=== PATIENT | female | born 1990 | race Native Hawaiian/Other Pacific Islander ===

== ENCOUNTER 2016-02-21 06:58 | Inpatient (IN) | payer OTHER ==
[~2016-02-21] VITALS: Ht 172.7 cm; Wt 88.9 kg
[2016-02-21] VITALS (18 sets, daily range): BP systolic 90–137; BP diastolic 52–98; TEMP 97.7–98.1; Ht 172.7 cm; Wt 88.9 kg
[~2016-02-21 06:58] MED LIST: PRENATAL1 TA1 PO; PROAIR HFA IN; SINGULAIR10 MG PO
[2016-02-21 11:57] LABS: PLATELET COUNT 314 K/uL (152-353)
[2016-02-21 12:08] LABS: POTASSIUM 3.4 mmol/L (3.6-5.2); SODIUM 133 mmol/L (136-145)
[2016-02-22] VITALS (16 sets, daily range): BP systolic 86–133; BP diastolic 38–79; TEMP 97.8–98.4
[2016-02-22 05:45] LABS: POTASSIUM 4.1 mmol/L (3.6-5.2); SODIUM 136 mmol/L (136-145)
[2016-02-22 05:59] LABS: PLATELET COUNT 343 K/uL (152-353)
[2016-02-23] VITALS: BP 129/73; TEMP 97.2
[2016-02-23 05:35] VITALS: BP 137/68; TEMP 97.9
[2016-02-23 05:55] LABS: PLATELET COUNT 343 K/uL (152-353)
[2016-02-23 06:17] LABS: POTASSIUM 3.7 mmol/L (3.6-5.2); SODIUM 137 mmol/L (136-145)
[2016-02-23 08:00] VITALS: BP 128/73; TEMP 98.3
[2016-02-23 12:00] VITALS: BP 122/83; TEMP 98.4
[2016-02-23 15:59] VITALS: BP 104/64; TEMP 99
[2016-02-23 20:00] VITALS: BP 135/70; TEMP 97.8
[2016-02-24] VITALS: BP 114/61; TEMP 97.7
[2016-02-24 04:00] VITALS: BP 139/82; TEMP 97.8
[2016-02-24 12:20] VITALS: BP 117/81; TEMP 97.9
[2016-02-24 16:16] VITALS: BP 126/73; TEMP 98.4
[2016-02-25 06:28] VITALS: BP 126/71; TEMP 98.3
[2016-02-25 06:42] LABS: PLATELET COUNT 324 K/uL (152-353)
[2016-02-25 07:00] LABS: POTASSIUM 4.2 mmol/L (3.6-5.2); SODIUM 135 mmol/L (136-145)
[2016-02-25 08:00] VITALS: BP 120/80; TEMP 98.4
[2016-02-25 12:00] VITALS: BP 119/79; TEMP 98.7
[2016-02-25 16:00] VITALS: BP 122/78; TEMP 98.6
[2016-02-25 20:00] VITALS: BP 115/58; TEMP 98
[2016-02-26] VITALS: BP 119/65; TEMP 98
[2016-02-26 04:00] VITALS: BP 136/64; TEMP 98.1
[2016-02-26 08:00] VITALS: BP 116/65; TEMP 98.1
[2016-02-26 09:36] LABS: PLATELET COUNT 344 K/uL (152-353)
[2016-02-26 09:53] LABS: POTASSIUM 3.4 mmol/L (3.6-5.2); SODIUM 133 mmol/L (136-145)
[2016-02-26 11:56] VITALS: BP 125/68; TEMP 97.9
[2016-02-26 16:18] VITALS: BP 121/72; TEMP 98.5
[2016-02-26 20:14] VITALS: BP 135/60; TEMP 97.4
[2016-02-27] VITALS: BP 112/55; TEMP 97.3
[2016-02-27 04:00] VITALS: BP 113/74; TEMP 97.9
[2016-02-27 04:34] LABS: PLATELET COUNT 342 K/uL (152-353)
[2016-02-27 05:04] LABS: POTASSIUM 3.7 mmol/L (3.6-5.2); SODIUM 134 mmol/L (136-145)
[2016-02-27 08:18] VITALS: BP 107/65; TEMP 97.8
[2016-02-27 12:01] VITALS: BP 145/66; TEMP 98.2
== END 2016-02-27 12:22 | disposition home or self-care (01) | DRG 202 ==
LOC: ED 06:58 → ICU 07:55 → MED/SURG 07:55 → ED 07:55 → MED/SURG 02-22 14:05 → ICU 02-22 14:05 → ED 02-23 07:55 → ICU 02-23 07:55 → MED/SURG 02-23 07:55 → ICU 02-23 07:55 → MED/SURG 02-23 13:19
PROVIDERS: Emergency Medicine; ADMIT Emergency Medicine
DX: J45.902 Unspecified asthma with status asthmaticus (principal); J44.1 Chronic obstructive pulmonary disease with (acute) exacerbation; E87.1 Hypo-osmolality and hyponatremia; E87.6 Hypokalemia; R09.02 Hypoxemia
CPT/HCPCS: 36415; 36600; 80053; 80335; 81000; 81025; 82805; 83735; 84100; 85027; 87070; 87205; 94640; 94664; 94668; 94760; 96372; 96374; 96375; 99285; J0280; J1650; J2060; J2930; J3105; J3475

== ENCOUNTER 2017-01-24 11:09 | Inpatient (IN) | payer OTHER ==
[2017-01-24] VITALS (7 sets, daily range): BP systolic 99–148; BP diastolic 60–82; TEMP 98.4–99.8; Ht 172.7 cm; Wt 94.1 kg
[~2017-01-24] VITALS: Ht 172.7 cm; Wt 94.1 kg
[2017-01-24 11:39] LABS: PLATELET COUNT 338 K/uL (152-353)
[2017-01-24 11:46] LABS: POTASSIUM 3.8 mmol/L (3.6-5.2); SODIUM 135 mmol/L (136-145)
[2017-01-24] MEDS ORDERED: ALBUTEROL0.083 % IN (19:18)
[2017-01-25] VITALS: BP 131/62; TEMP 98.3
[2017-01-25 04:00] VITALS: BP 117/74; TEMP 98.1
[2017-01-25 06:30] LABS: PLATELET COUNT 345 K/uL (152-353)
[2017-01-25 06:44] LABS: POTASSIUM 3.5 mmol/L (3.6-5.2); SODIUM 134 mmol/L (136-145)
[2017-01-25 08:00] VITALS: BP 125/69; TEMP 98.2
[2017-01-25 11:44] VITALS: BP 121/73; TEMP 98.2
[2017-01-25 16:00] VITALS: BP 138/65; TEMP 98.7
[2017-01-25 20:00] VITALS: BP 124/68; TEMP 98.3
[2017-01-26] VITALS: BP 117/62; TEMP 98.7
[2017-01-26 04:00] VITALS: BP 141/56; TEMP 98.5
[2017-01-26 06:22] LABS: SODIUM 136 mmol/L (136-145)
[2017-01-26 06:50] LABS: PLATELET COUNT 357 K/uL (152-353)
[2017-01-26 08:00] VITALS: BP 125/67; TEMP 98.3
[2017-01-26 12:00] VITALS: BP 115/65; TEMP 99
[2017-01-26 16:00] VITALS: BP 106/63; TEMP 98.7
[2017-01-26 20:00] VITALS: BP 120/59; TEMP 98.3
[2017-01-27] VITALS: BP 109/58; TEMP 98.6
[2017-01-27 04:00] VITALS: BP 116/77; TEMP 97.9
[2017-01-27 06:21] LABS: PLATELET COUNT 354 K/uL (152-353)
[2017-01-27 06:35] LABS: POTASSIUM 4.3 mmol/L (3.6-5.2); SODIUM 139 mmol/L (136-145)
[2017-01-27 08:00] VITALS: BP 137/74; TEMP 98.4
== END 2017-01-28 12:45 | disposition home or self-care (01) | DRG 203 ==
LOC: ED 11:09 → MED/SURG 12:30
PROVIDERS: Internal Medicine; ADMIT Specialist
DX: J45.998 Other asthma (principal); R09.02 Hypoxemia; D72.828 Other elevated white blood cell count; J01.10 Acute frontal sinusitis, unspecified; K21.9 Gastro-esophageal reflux disease without esophagitis; E66.8 Other obesity
CPT/HCPCS: 36415; 36600; 80048; 80053; 81000; 81025; 82805; 83735; 85027; 94640; 94644; 94645; 94664; 94760; 96372; 96374; 96375; 99284; J1200; J1650; J2930; J3490

== ENCOUNTER 2019-03-21 16:28 | Outpatient (CLI) | payer OTHER ==
[~2019-03-21 16:28] MED LIST changes: +ALBUTEROL0.083 % IN
== END 2019-03-21 20:15 | disposition home or self-care (01) ==
LOC: RAD 16:28
DX: J40 Bronchitis, not specified as acute or chronic (principal)

== ENCOUNTER 2019-06-20 12:15 | Outpatient (CLI) | payer OTHER | END 2019-06-20 22:26 | disposition home or self-care (01) | LOC: RAD 12:15 | DX: U07.1 COVID-19 (principal) ==

== ENCOUNTER 2019-06-28 11:40 | Outpatient (CLI) | payer OTHER | END 2019-06-28 22:23 | disposition home or self-care (01) | LOC: RESP 11:40 → RAD 11:40 | DX: U07.1 COVID-19 (principal) ==

== ENCOUNTER 2019-10-09 08:28 | Outpatient (CLI) | payer OTHER ==
[2019-10-09 14:05] LABS: PLATELET COUNT 400 K/uL (152-353)
== END 2019-10-09 22:56 | disposition home or self-care (01) ==
LOC: LABW 08:28
PROVIDERS: Nurse Practitioner
DX: L65.9 Nonscarring hair loss, unspecified (principal)
CPT/HCPCS: 36415; 82157; 82626; 82652; 83001; 83002; 84146; 84402; 84403; 84439; 84443; 85027

== ENCOUNTER 2020-04-14 09:32 | Inpatient (IN) | payer OTHER ==
[2020-04-14] VITALS (10 sets, daily range): BP systolic 103–153; BP diastolic 47–86; TEMP 97.6–97.8; Ht 172.7 cm; Wt 104.0 kg
[~2020-04-14] VITALS: Ht 172.7 cm; Wt 104.0 kg
[2020-04-14 10:10] LABS: PLATELET COUNT 378 K/uL (152-353)
[2020-04-14 10:25] LABS: POTASSIUM 2.7 mmol/L (3.6-5.2); SODIUM 142 mmol/L (136-145)
[2020-04-14 10:31] LABS: PARTIAL THROMBOPLASTIN TIME 22.7 SECONDS (24.5-33.6)
--- NOTE | 2020-04-14 12:45 | NUR ---
REC'D PT FROM ER VIA WC. PT ASSISTED TO BED AND VENTIMASK INTACT AT 50%. PT NOTED TO BE TACHY WITH A RATE OF 130 AND RESP LABORED. WILL CON'T TO MONITOR.
--- NOTE | 2020-04-14 13:25 | NUR ---
DR DAWSON INFORMED OF POTASSIUM ON 2.7 IN ER. NO NEW ORDERS AT THIS TIME.
--- NOTE | 2020-04-14 14:00 | NUR ---
Se DAWSON AT BS SEEING PT.
--- NOTE | 2020-04-14 15:05 | NUR ---
CALLED TO ROOM PER PT. PT STATED SHE WAS HAVING A "HARD TIME BREATHING" UPON ENTERING THE ROOM PT NOTED TO BE SITTING IN HIGH FOWELRS POSITION WITH LABORED BREATHING. PT'S SATS IN LOW 90'S WITH VENTI-MASK INTACT. DR VAUGHN NOTIIFED OF RESP DISTRESS ALONG WITH RESP. RESP RESPNDED THAT THEY WERE IN ER WITH A PT.
--- NOTE | 2020-04-14 15:15 | NUR ---
DR DAWSON IN ROOM AT . NEW ORDERS TO SWAP PT TO CONT NEBS AND GIVE ATIVAN 1MG IV. INSTRUCTED PT TO ATTEMPT TO SLOW RR DOWN AND WE WAS GETTING SOME MEDS FOR HER.
--- NOTE | 2020-04-14 15:20 | NUR ---
PT SWAPPED OVER TO CONT NEBS PER RESP AND ATIVAN 1MG IV ALONG WITH MORPHINE 1MG IVP GIVEN. PT SATS SLOWLY INCREASING TO 93% ON CONT NEBS. WILL CON'T TO MONITOR.
--- NOTE | 2020-04-14 15:50 | NUR ---
PT NOTED TO BE RESTING IN BED IN HIGH FLOWER'S POSITION . RR REMAIN LABORED BUT LESS THAN ON PRIOR EXAM. WILL CONT TO MONITOR
--- NOTE | 2020-04-14 15:54 | NUR ---
PATIENT PLACED OM CONTINOUS NEB AT 1515 AT 50%
--- NOTE | 2020-04-14 16:06 | NUR ---
1530 PT NOTED TO BE LESS ANXIOUS AT THIS TIME. SATS 93-94% ON CONT NEBS PT STATED SHE WAS BEGINNING TO FEEL DROWSY.
--- NOTE | 2020-04-14 18:10 | NUR ---
PATIENT SATING 96% AND HEARTRATE 121
[2020-04-15] VITALS: BP 136/89; TEMP 97.4
[2020-04-15 04:00] VITALS: BP 127/77; TEMP 98.2
[2020-04-15 04:55] LABS: PLATELET COUNT 361 K/uL (152-353)
[2020-04-15 05:34] LABS: POTASSIUM 3.7 mmol/L (3.6-5.2)
[2020-04-15 08:00] VITALS: BP 138/69; TEMP 97.8
--- NOTE | 2020-04-15 08:15 | NUR ---
PT SITTING UP IN BED ON CONTINUOUS NEB TXS, SATS 97%. ADVENTITIOUS BREATH SOUNDS NOTED THROUGHOUT, PT IN NAD AT THIS TIME AND TOLERATES TALKING/EATING/DRINKING WHILE ON O2. PT REPORTS GETTING EXTREMELY WINDED WHEN SHE AMBULATES TO SINK OR BATHROOM. BSC AND WIPES PLACED AT BEDSIDE AND PT ENCOURAGED TO USE THEM AND TO CALL FOR ASSIST BEFORE GETTING UP. PT VERBALIED UNDERSTANDING AND AGREES TO DO SO. BOWEL SOUNDS HYPOACTIVE WITH LBM REPORTED 04/13/20. TELE #6 AND CONTINUOUS PULSE OX IN PLACE WITH LEADS ATTACHED AND SATS97% ON CONTINUOUS NEBS. 20G SL IN LAC FLUSHED, NO REDNESS, SWELLING OR DRAINAGE NOTED TO SITE. CALL LIGHT IN EASY REACH. WILL CONTINUE TO MONITOR.
[2020-04-15 12:00] VITALS: BP 156/66; TEMP 97.7
--- NOTE | 2020-04-15 13:47 | NUR ---
PT SET UP FOR SPONGE BATH AT THIS TIME, WITH INSTRUCTIONS TO NOTIFY STAFF WHEN SHE IS DONE.
--- NOTE | 2020-04-15 14:07 | NUR ---
PT HR WENT UP TO 147 WHILE SITTING UP ON THE BEDSIDE BATHING. DISHROOM ATTENDANT TO ROOM TO ASSESS PT AND FOUND THAT PT HAD REMOVED O2. O2 REPLACED AND SATS IMPROVED TO 96 ON CONTINUOUS NEBS, HR DECREASED TO 130'S. DR. DAWSON NOTIFIED. NO NEW ORDERS YET. WILL CONTINUE TO MONITOR.
[2020-04-15 16:00] VITALS: BP 128/64; TEMP 97.5
--- NOTE | 2020-04-15 16:27 | NUR ---
LINENS CHANGED AT THIS TIME. PT IN NAD.
--- NOTE | 2020-04-15 18:11 | NUR ---
PT'S FACE RED AND IRRITATED WHERE MASK IS LAYING- DUODERM CUT TO FIT AND APPLIED.
[2020-04-15 19:54] VITALS: BP 133/74; TEMP 97.9
[2020-04-16] VITALS: BP 120/56; TEMP 98.1
--- NOTE | 2020-04-16 00:18 | NUR ---
SPO2 99% ON 50% CONTINOUS NEB WITH DUOB NEB AND DECARDRON. BBS: COARSE WHEEZING. HR 106. PT TOLERATING TX WELL.
--- NOTE | 2020-04-16 02:31 | NUR ---
RESTATRED CONT. NEB. SPO2 94%, HR 101, RR 24. BBS:COARSE WHEEZING. WILL CONT. TO MONITOR PT.
--- NOTE | 2020-04-16 03:30 | NUR ---
PT AWAKE SITTING UP IN THE BED WATCHING TV IN A HIGH FOWLERS POSITION. PT IS IN NO DISTRESS.
[2020-04-16 04:00] VITALS: BP 112/63; TEMP 98.4
[2020-04-16 07:01] LABS: POTASSIUM 4.4 mmol/L (3.6-5.2)
[2020-04-16 07:59] LABS: PLATELET COUNT 379 K/uL (152-353)
[2020-04-16 08:00] VITALS: BP 149/71; TEMP 98
--- NOTE | 2020-04-16 08:48 | NUR ---
PT SITTING UP IN BED EATING BREAKFAST A/O X3, NO C/O PAIN OR DISTRESS AT THIS TIME. PT REMOVED O2 TO EAT, SATS NOTED TO FLUCTUATE BETWEEN 88 AND 95% ON RA, HR 100-110. INSPIRATORY AND EXPIRATORY WHEEZES NOTED BILATERALLY, BOWEL SOUNDS ACTIVE X4, LAST REPORTED BM 04/16. PT REQUESTED TO REMAIN ON RA FOR A BIT. PT WEARING TELE AND CONTINUOUS PULSE OX,WILL MONITOR. CALL LIGHT IN EASY REACH.WILL CONTINUE TO MONITOR.
--- NOTE | 2020-04-16 11:30 | NUR ---
TURNED PATIENT OFF CONTINOUS TO SEE IF TOLERATED OFF O2 AT AND SATING 93%
--- NOTE | 2020-04-16 11:33 | NUR ---
PER JAYLEN, RT- PT ON RA NOW, SATS MAINTAINED ABOVE 93%
[2020-04-16 12:00] VITALS: BP 158/68; TEMP 98.3
--- NOTE | 2020-04-16 12:34 | NUR ---
PT STILL ABLE TO MAINTAIN SATS ON RA, IN NAD AT THIS TIME.
--- NOTE | 2020-04-16 13:11 | NUR ---
PT MAINTAINING SATS ABOVE 93% ON RA.
[2020-04-16 16:00] VITALS: BP 124/70; TEMP 98.5
--- NOTE | 2020-04-16 16:18 | NUR ---
PT REPORTS HAVING A COUGHING SPELL AFTER GETTING OUT OF THE SHOWER THAT CAUSED HER TO BECOME SOB. NURSE AND RT TO BEDSIDE, PT PLACED BACK ON O2, RECOVERED AFTER APPROX 10-15MIN. PT REPORTS NOW COUGHING UP THICK, LAYTON COLORED SPUTUM.
--- NOTE | 2020-04-16 17:15 | NUR ---
PT GIVEN TYLENOL PO FOR CO HEADACHE.
[2020-04-16 20:11] VITALS: BP 125/64; TEMP 97.9
--- NOTE | 2020-04-16 21:20 | NUR ---
PATIENT C/O OF HEADACHE AND REPORTS SHE HAS A HISTORY OF MIGRAINES. RECEIVED NEW ORDER FROM DR. CURTIS FOR MORPHINE 4MG IVP Q6 HOURS PRN FOR PAIN AND ZOFRAN 4MG Q6 HOURS PRN NAUSEA/VOMITING.
--- NOTE | 2020-04-16 22:10 | NUR ---
PATIENT RESTING QUIETLY IN BED IN LOW FOWLERS POSITION WITH LIGHTS OFF. PATIENT CONTINUES TO C/O OF HEADACHE, 8/10 NUMERIC PAIN SCALE. MORPHINE 4MG IVP AND ZOFRAN 4MG IVP ADMINISTERED AT THIS TIME WITHOUT DIFFICULTY TO 22G LAC WITHOUT DIFFICULTY. PATIENT DENIES ANY BURNING OR PAIN TO IV SITE AND DENIES ANY NEEDS OR C/O AT THIS TIME. WILL MONITOR PATIENT FOR EFFECTIVE THERAPEUTIC TREATMENT AND NO ADVERSE REACTIONS.
--- NOTE | 2020-04-16 23:50 | NUR ---
UPON ENTERING ROOM, FOUND PATIENT RESTING QUIELTY IN LOW FOWLERS POSITION. VITALS OBTAINED. PATIENT DENIES PAIN AT THIS TIME. NO S/SX OF DISTRESS NOTED WITH PATIENT AT THIS TIME. CALL LIGHT WITHIN REACH, PT ENCOURAGED TO CALL FOR ANY ASSISTANCE OR NEEDS. BEDSIDE TABLE WITH PERSONAL BELONGINGS WITH REACH FOR PATIENT.
[2020-04-17 00:08] VITALS: BP 125/71; TEMP 98.1
--- NOTE | 2020-04-17 01:30 | NUR ---
PATIENT RESTING QUIETLY IN BED WITH EYES CLOSED IN LOW FOWLERS POSITION. NAD NOTED WITH PATIENT AT THIS TIME.
[2020-04-17 04:03] VITALS: BP 119/76; TEMP 97.4
--- NOTE | 2020-04-17 04:20 | NUR ---
PATIENT REMAINS IN LOW FOWLERS POSITION. PATIENT RESTING COMFORTABLY WITH EYES CLOSED BUT RESPONDS EASILY TO VERBAL OR TACTICLE STIMULI. NAD NOTED WITH PATIENT. PATIENT DENIES ANY PAIN, NEEDS OR C/O AT THIS TIME.
[2020-04-17 08:00] VITALS: BP 154/87; TEMP 98.1
[2020-04-17 12:00] VITALS: BP 133/74; TEMP 97.6
[2020-04-17] MEDS ORDERED: AZIT250T3 PO (16:34)
[2020-04-17] MEDS ORDERED: DEXAMETHASON4 MG PO (16:36)
--- NOTE | 2020-04-17 17:15 | NUR ---
EDUCATED PT ON DISCHARGE INSTRUCTIONS, PT VERBALIZED UNDERSTANDING. IV WAS REMOVED WITH CATHETER INTACTD. NAD IS NOTED AT THIS TIME.
--- NOTE | 2020-04-17 17:30 | NUR ---
PT DISCHARGED FROM HOSPITAL VIA WHEELCHAIR WITH PERSONAL BELONGINGS. PT WAS ESCORTED TO PERSONAL VEHICLE. NAD WAS NOTED DURING DISCHARGE FROM HOSPITAL.
== END 2020-04-17 17:15 | disposition home or self-care (01) | DRG 203 ==
LOC: ED 09:32 → MED/SURG 11:45
PROVIDERS: Hospitalist; ADMIT Internal Medicine; ATTEND Internal Medicine
DX: J45.902 Unspecified asthma with status asthmaticus (principal); K21.9 Gastro-esophageal reflux disease without esophagitis; E87.6 Hypokalemia
CPT/HCPCS: 36415; 80048; 80053; 82550; 83735; 83880; 84484; 85027; 85610; 85730; 87635; 87651; 93005; 94640; 94645; 94664; 94760; 96360; 96365; 96372; 96375; 99284; J0456; J0696; J1100; J1650; J2060; J2270; J2405; J2930; J3475; U0003

== ENCOUNTER 2020-05-08 22:49 | Emergency (ER) | payer OTHER ==
[~2020-05-08] VITALS: Ht 172.7 cm; Wt 105.7 kg
[~2020-05-08 22:49] MED LIST changes: +AZIT250T3 PO; +DEXAMETHASON4 MG PO
[2020-05-08 22:56] VITALS: BP 152/77; TEMP 98.6
== END 2020-05-09 00:56 | disposition home or self-care (01) ==
LOC: ED 22:49
DX: S80.12XA Contusion of left lower leg, initial encounter (principal); W10.8XXA Fall (on) (from) other stairs and steps, initial encounter; Y92.89 Other specified places as the place of occurrence of the external cause
CPT/HCPCS: 96372; 99283; J1885

== ENCOUNTER 2020-08-22 09:18 | Emergency (ER) | payer OTHER ==
[~2020-08-22] VITALS: Ht 172.7 cm; Wt 100.2 kg
[2020-08-22 09:21] VITALS: BP 128/72; TEMP 98.1
== END 2020-08-22 10:30 | disposition home or self-care (01) ==
LOC: ED 09:18
DX: S39.012A Strain of muscle, fascia and tendon of lower back, initial encounter (principal); M62.830 Muscle spasm of back; X50.1XXA Overexertion from prolonged static or awkward postures, initial encounter; Y92.098 Other place in other non-institutional residence as the place of occurrence of the external cause
CPT/HCPCS: 81000; 96372; 99283; J1885; J2360

== ENCOUNTER 2022-10-18 00:23 | Observation (INO) | payer OTHER ==
[2022-10-18] VITALS (10 sets, daily range): BP systolic 105–133; BP diastolic 66–83; TEMP 97.9–99.2; Ht 172.7 cm; Wt 99.1 kg
[~2022-10-18] VITALS: Ht 172.7 cm; Wt 99.1 kg
[2022-10-18 01:21] LABS: PLATELET COUNT 315 K/uL (152-353)
[2022-10-18 01:52] LABS: POTASSIUM 3.7 mmol/L (3.6-5.2)
[2022-10-18 07:11] LABS: PLATELET COUNT 343 K/uL (152-353)
[2022-10-18 07:16] LABS: POTASSIUM 4.4 mmol/L (3.6-5.2)
[2022-10-18] MEDS ORDERED: MONT10TA PO (10:56)
[2022-10-19 04:00] VITALS: BP 124/65; TEMP 98.7
[2022-10-19 05:10] LABS: PLATELET COUNT 321 K/uL (152-353)
[2022-10-19 05:12] LABS: POTASSIUM 4.1 mmol/L (3.6-5.2)
[2022-10-19 07:56] VITALS: BP 127/78; TEMP 98.5
[2022-10-19 12:00] VITALS: BP 135/74; TEMP 99
[2022-10-19 16:00] VITALS: BP 139/75; TEMP 98.4
[2022-10-19 19:31] VITALS: BP 122/53; TEMP 98.9
[2022-10-19 23:33] VITALS: BP 122/77; TEMP 98.5
[2022-10-20 03:33] VITALS: BP 131/70; TEMP 98.6
[2022-10-20 04:23] LABS: PLATELET COUNT 375 K/uL (152-353)
[2022-10-20 04:46] LABS: POTASSIUM 4.1 mmol/L (3.6-5.2)
[2022-10-20 07:45] VITALS: BP 125/74; TEMP 98.6
[2022-10-20] MEDS ORDERED: PRED10TA27 PO (11:13)
[2022-10-20] MEDS ORDERED: AZIT250T3 PO (11:16)
[2022-10-20 12:00] VITALS: BP 136/69; TEMP 98.4
== END 2022-10-20 12:20 | disposition home or self-care (01) ==
LOC: ED 00:23 → MED/SURG 01:39
PROVIDERS: Family Medicine; ADMIT Nurse Practitioner Family; ATTEND Internal Medicine
DX: J13 Pneumonia due to Streptococcus pneumoniae (principal); J45.901 Unspecified asthma with (acute) exacerbation; R06.09 Other forms of dyspnea; Z87.891 Personal history of nicotine dependence
CPT/HCPCS: 36415; 36600; 80048; 80053; 82805; 83735; 85027; 87070; 87077; 87185; 87186; 87205; 87502; 94664; 94760; 96361; 96365; 96367; 96374; 96375; 96376; 99221; 99284; G0378; J0456; J0696; J1100; J2270; J2405; J2920